=== PATIENT | male | born 1970 | race Caucasian/White ===

== ENCOUNTER 2023-01-02 09:49 | Outpatient (OUT) | payer MEDICARE, SELFPAY ==
--- NOTE | 2023-01-02 09:59 | ECG_ITS ---
[facility] Test Date: 2023-01-02 Pat Name: DENIS DIANE Department: Room: - Gender: Male Early Years [employer]: : 1970 Requested By: ELLIS JULIAN Order Number: [id number] Reading MD: TEO ORELLANA Measurements Intervals [place] Rate: 67 P: 67 [place]: 145 QRS: 65 QRSD: 96 T: 71 QT: 387 QTc: 409 Interpretive Statements SINUS RHYTHM Baseline artifact present No previous ECG available for comparison Electronically Signed On 01-03-2023 7:08:05 EDT by TEO ORELLANA
[2023-01-02 10:57] LABS: Basophils Absolute Auto 0.1 10^3/uL (0.0-0.1); Basophils Percent Auto 0.8 % (0.2-2.0); Eosinophils Absolute Auto 0.1 10^3/uL (0.0-0.7); Eosinophils Percent Auto 1.6 % (0.9-7.0); Hematocrit 46.3 % (42.0-54.0); Hemoglobin 14.6 g/dL (14.0-18.0); Immature Granulocytes Abs Auto 0.05 10^3/uL (0.00-0.03); Immature Granulocytes Pct Auto 0.8 % (0.0-0.5); Lymphocytes Absolute Auto 1.1 10^3/uL (1.2-3.8); Mean Corpuscular HGB Conc 31.5 g/dL (29.9-35.2); Mean Corpuscular Volume 88.9 fL (80.0-94.0); Mean Platelet Volume 8.7 fL (9.5-13.5); Monocytes Absolute Auto 0.5 10^3/uL (0.3-0.8); Monocytes Percent Auto 7.3 % (1.7-12.0); Neutrophils Absolute Auto 4.5 10^3/uL (1.4-6.5); Neutrophils Percent Auto 71.5 % (43.0-75.0); Platelet Count 274 10^3/uL (150-450); Red Blood Count 5.21 10^6/uL (4.70-6.10); Red Cell Distribution Width 13.6 % (11.0-15.0); White Blood Count 6.3 10^3/uL (4.0-11.0)
[2023-01-02 11:13] LABS: Calcium 9.5 mg/dL (8.5-10.1); Carbon Dioxide 27.9 mmol/L (21.0-32.0); Estimated GFR (African America >60 (>=60); Estimated GFR (Non-African Ame >60 (>=60); Glucose 138 mg/dL (74-106)
[2023-01-02 13:02] LABS: INR 0.97; Partial Thromboplastin Time 28.8 sec (22.3-36.2); Prothrombin Time 10.3 sec (9.0-11.6)
[2023-01-03 10:55] LABS: Sodium 136 mmol/L (136-145)
[2023-01-03 10:59] LABS: Potassium 4.9 mmol/L (3.5-5.1)
[2023-01-03 11:00] LABS: Chloride 99 mmol/L (98-107)
== END 2023-01-02 09:50 | disposition home or self-care (01) ==
LOC: PST 09:52
PROVIDERS: PCP Internal Medicine; Visit Provider Urology
DX: Z01.810 Encounter for preprocedural cardiovascular examination (principal); Z01.812 Encounter for preprocedural laboratory examination; N20.0 Calculus of kidney; R31.9 Hematuria, unspecified; R10.9 Unspecified abdominal pain; E11.9 Type 2 diabetes mellitus without complications; N31.9 Neuromuscular dysfunction of bladder, unspecified; G82.50 Quadriplegia, unspecified
CPT/HCPCS: 80048; 85025; 85610; 85730; 93005

== ENCOUNTER 2023-01-17 07:14 | Day surgery (SDC) | payer MEDICARE, SELFPAY ==
[2023-01-02 10:53] VITALS: BP 112/86; PULSE 64; RESP 14; TEMP 36.3; O2SAT 100; BMI 23.1
[2023-01-17] VITALS (23 sets, daily range): BP systolic 113–215; BP diastolic 81–131; PULSE 58–91; RESP 12–31; TEMP 36–36.1; O2SAT 83–99; BMI 22.2
[2023-01-17 07:40] LABS: Glucometer 130 mg/dL (74-106)
[2023-01-17] MEDS: LACTATED RINGER'S SOLUTION 1,000 ML 50 ML IV ×2 (08:02→09:59)
[2023-01-17] MEDS: CEFAZOLIN SODIUM/DEXTROSE,ISO 1 GM/50 ML IV.SOLN IV (08:26)
--- NOTE | 2023-01-17 10:04 | PM.URSON ---
Urology Surgery Operative Note Operative Note Procedure Date: 01/17/23 Time Out Performed: yes Pre-op Diagnosis: right nephrolithiasis recurrent and flank pain and urinary infections Post-op Diagnosis: same as pre-op Procedures performed: #1. Cystoscopy. #2. Clot evacuation and bladder stone evacuation. #3. Right rigid ureteral dilation. #4. Right ureteroscopy. #5. Right pyeloscopy. #6. Holmium laser lithotripsy of multiple right renal calculi. #7. Stone basket extraction of multiple fragments from the right kidney. #8. Placement of 6 [place] variable length right ureteral stent Anesthesia: General-LMA Primary Surgeon: Nando Kelly Complications: none Estimated blood loss (mL): 30 Findings: #1. Large stone within the prostatic urethra. #2. Multiple bladder calculi. #3. Normal right ureter. #4. Multiple right renal calculi. #5. Friable bladder and right kidney. Specimens: #1. Bladder calculi. #2. Right renal stone fragments. 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 He now presents for cystoscopy, ureteroscopy, pyeloscopy, laser lithotripsy of stones and stent placement. He has signed an informed consent after the risks were explained. Detailed description of Procedure: The patient was brought to the operating room and placed on the operating room table in the supine position. SCDs were placed on the lower extremities and turned on and functioning during the entire case. Timeout was done by all parties in the room. We all agreed upon the patient's identification and the planned procedures for this patient. Genn. anesthesia was then administered. The patient was then repositioned into the modified dorsal lithotomy position. All pressure points were satisfactorily padded. Genitalia were sterilely prepped and draped in usual fashion.I started by passing a 22 [place] Olympus cystoscope per urethra and as I got to the prostatic urethra I saw that he had a large stone within the prostatic urethra. With the beak of the scope I was able to push it into the bladder. the suprapubic tube was clamped.There were multiple other bladder stones. There were blood clots. I then used the Captual evacuator and irrigated out all the clots and all of the stones. These were sent separately labeled bladder calculi. The bladder was very friable and immediately began to bleed. Visibility was very poor at this time. I was able to pass a Gliddewire through the scope and cannulated the right ureter and get it up into the kidney. I then passed an 8 and then 10 [place] rigid dilator over the wire to dilate the distal ureter. The scope was then removed. I then passed a navigator 03/18 ureteral access sheath over the wire and further dilated the distal ureter. The stylette was up to the L4 level. The wire and stylette were then removed. I then passed a flexible ureteroscope through the access sheath and into the ureter. I then scoped up the ureter and then did pyeloscopy. I went into all of the calyceal system of the kidney upper mid and lower poles and found numerous stones. Some of these stones were actually fairly large approximating 5-6 mm. The largest were in the midppole of the kidney. I started there and I passed a 272 ? holmium laser fiber through the scope and made contact with the stones. I then did laser lithotripsy on the dust modality at 6 W continuously. I ultimately increased to a maximum of 8 W. There was quite a bit of fragmentation and dusting. The majority of the stones were well fragmented. I used a 0 tip nitinol basket and extracted several pieces that were remaining. These were all sent for stone analysis. I then turned my attention to the lower pole calyces and similarly did laser lithotripsy on the dust modality. Eventually there was bleeding within the kidney because the lining of the kidney was friable also. Fluoroscopically we're unable to identify any more stones. Visibility became poor and we had to stop the procedure at this time. We were unable to truly see any more stones. The scope was removed. A Glidewire was passed back up into the kidney on the access sheath was removed. I then backloaded the cystoscope over the wire and passed it into the bladder. I then slid a 6 [place] variable length ureteral stent over the wire into the kidney. The wire was removed and there were good curls in the kidney and in the bladder. The bladder was drained of its contents and the scope was then removed. His suprapubic tube was unclamped. He was then transferred to a [facility] bed and wheeled to PACU in stable condition.
[2023-01-30 11:10] LABS: Size 4x3 mm (.)
[2023-01-30 14:09] LABS: Calcium Oxalate Monohydrate 5 % (.); Size 9x7 mm (.)
== END 2023-01-17 12:15 | disposition home or self-care (01) ==
PROVIDERS: PCP Internal Medicine; Visit Provider Urology
PROC: (CPT 52001; principal; 2023-01-17 08:10)
DX: N20.0 Calculus of kidney (principal); N21.0 Calculus in bladder; G82.50 Quadriplegia, unspecified; Z87.440 Personal history of urinary (tract) infections; Z87.442 Personal history of urinary calculi; N31.9 Neuromuscular dysfunction of bladder, unspecified; N40.1 Benign prostatic hyperplasia with lower urinary tract symptoms; Z79.84 Long term (current) use of oral hypoglycemic drugs; R82.991 Hypocitraturia; E11.9 Type 2 diabetes mellitus without complications
CPT/HCPCS: 52001; 52356; 36415; 36416; 76000; 82365; 82948; 99999; C1874; J1170; J2704